=== PATIENT | female | born 1990 ===

== ENCOUNTER 2019-03-08 14:04 | Emergency (ER) | payer BC ==
[~2019-03-08 14:04] MED LIST: Metoprolol Tartrate 5 MG/5 ML SDV IV SCH; Sodium Chloride 0.9% 10 ML Syringe FLUSH PRN
[2019-03-08] MEDS ORDERED: Amiodarone 150 MG/3 ML SDV IV ONE (14:05)
[2019-03-08] MEDS ORDERED: Succinylcholine 200 MG/10 ML MDV IV ONE (14:05)
[2019-03-08] MEDS ORDERED: Etomidate 2 MG/ML 20 ML SDV IVPUSH ONE (14:05)
[2019-03-08] MEDS ORDERED: Atropine 0.1 MG/ML 10 ML Syringe IV ONE (14:05)
[2019-03-08] MEDS ORDERED: Rocuronium 100 MG/10 ML MDV IV ONE (14:05)
[2019-03-08] MEDS ORDERED: Sodium Bicarbonate 8.4% 50 MEQ/50 ML Syringe IV ONE (14:05)
[2019-03-08] MEDS ORDERED: EPINEPHrine 1:10,000 1 MG/10 ML Syringe IV ONE (14:05)
[2019-03-08] MEDS ORDERED: DOPamine/Dextrose 5%-Water 400 MG/250 ML BAG IV ONE (14:05)
[2019-03-08 14:13] LABS: BASE EXCESS VENOUS -2.9 mmol/l ((-2)-(+3)); BICARBONATE,VENOUS 20 mmol/l (19-25); O2 DELIVERY DEVICE NASAL CANNULA; O2 SATURATION VENOUS 83.6 % (60-80); PCO2 VENOUS 30 mmHg (41-51); PH,VENOUS 7.44 (7.31-7.41); PO2 VENOUS 51 mmHg (35-42)
[2019-03-08] MEDS ORDERED: Lidocaine 1% 30 ML SDV ONE (14:43)
[2019-03-08] MEDS ORDERED: DOPamine/Dextrose 5%-Water 0 MG/0 ML BAG ONE (14:47)
[2019-03-08 15:34] LABS: SODIUM,NA 140 mmol/L (135-145)
--- NOTE | 2019-03-08 15:59 | EDM.PDOC ---
ED HPI GENERAL MEDICAL PROBLEM - General Chief Complaint: Respiratory Problem Stated Complaint: AMBULANCE Time Seen by Provider: 03/08/19 14:05 Source of Information: Reports: Patient - History of Present Illness INITIAL COMMENTS - FREE TEXT/NARRATIVE: Heather 28-year-old woman who presents via ambulance with chest pain and shortness of breath for the past few hours. As she arrives, she is quite out of breath doubly diaphoretic. She tells me that she was seen in [place] for pain in her left leg. Evidently a Doppler ultrasound was done which did not show any sign of DVT. 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 She is not currently on any anticoagulation. During my history taking with Heather, nursing was able to place a 20-gauge IV, and was attempting to place another IV that would be suitable for her CT scan, when she suddenly complained of increased shortness of breath. She became very red in her face, and had 2 episodes of choking-like activity. She then went unresponsive, and was found to have no pulse. CPR was immediately started, and BERNIE HAN was called. After approximately 2 minutes of CPR, she revived, and had spontaneous return to circulation. She was able to wake back up and talk with us after this occurred. She was moved into the trauma bay, and shortly after her arrival there, O2 saturations began to drop into the upper 70s. Fluid bolus was begun. Because of her cardiac arrest, and the fact that she had imminent respiratory failure and possibly another cardiac arrest, decision was made to intubate her. Anesthesia was called and was in attendance in the trauma bay. She was given medicines for intubation, and patient was intubated successfully. Shortly after intubation occurred, her heart rate dropped into the 50s, and O2 sats dropped severely. She was given a dose of epinephrine as well as atropine. Heart rate did respond nicely to this, initially rebounding up into the 140s. However 2 to 3 minutes after this occurred, she again had no pulse, so CPR was resumed. CPR was continued for next of the resuscitation, please see nursing notes for details on time. During each rhythm check, she had pulseless electrical activity. Doses of epinephrine as well as pain were given, as well as a dose of amiodarone and a dose of bicarbonate. I was able to talk with her father by telephone, and told him of the findings. It was relayed to him that there was obvious clinical signs of brain , and we decided together to have resuscitation stopped. - Related Data Allergies Allergy/AdvReac Type Severity Reaction Status Date / Time No Known Allergies Allergy Verified 03/08/19 13:57 ED ROS GENERAL - Review of Systems Review Of Systems: Comprehensive ROS is negative, except as noted in HPI. ED EXAM, GENERAL - Physical Exam Exam: See Below Free Text/Narrative:: Initial exam (prior to code): Heather is a 28-year-old woman who is in mild respiratory distress. Pharynx is clear, mucous membranes are moist Heart: Tachycardia with a rate of 140-150 Lungs: Poor air movement into both bases I do not palpate any erythema or swelling to either lower extremity Course - Vital Signs Last Recorded V/S: Last Vital Signs Temp 36.3 C 03/08/19 13:50 Pulse 145 H 03/08/19 14:14 Resp 32 H 03/08/19 13:50 BP 98/58 L 03/08/19 14:14 Pulse Ox 78 L 03/08/19 13:50 - Orders/Labs/Meds Orders: Active Orders 24 hr Category Date Time Status Cardiac Monitoring [RC] . DIRECTED Care 03/08/19 13:54 Active EKG 12 Lead [EKG Documentation Completion] [RC] STAT Care 03/08/19 14:17 Active Oxygen Therapy [RC] PRN Care 03/08/19 13:54 Active Peripheral IV Care [RC] . DIRECTED Care 03/08/19 13:55 Active Pulse Oximetry [RC] CONTINUOUS Care 03/08/19 13:54 Active Peripheral IV Insertion Adult [OM.PC] Stat Oth 03/08/19 13:54 Ordered Labs: Laboratory Tests 03/08/19 03/08/19 03/08/19 Range/Units 14:10 14:10 14:10 WBC 28.9 H* (5.0-10.0) 10^3/uL RBC 5.35 (4.2-5.4) 10^6/uL Hgb 14.2 (12.0-16.0) g/dL Hct 44.4 (37.0-47.0) % MCV 83.0 (80-100) fL MCH 26.5 L (27.0-34.0) pg MCHC 32.0 L (33.0-35.0) g/dL Plt Count 339 (150-450) 10^3/uL Neut % (Auto) 80.2 H (42.2-75.2) % Lymph % (Auto) 15.9 L (20.5-50.1) % [place] % (Auto) 2.9 (2-8) % Eos % (Auto) 0.8 L (1.0-3.0) % Baso % (Auto) 0.2 (0.0-1.0) % Add Manual Diff Yes Neutrophils % (Manual) 80 H (42-75) % Band Neutrophils % 2 % Lymphocytes % (Manual) 13 L (20-50) % Monocytes % (Manual) 2 (2-8) % Eosinophils % (Manual) 1 (1-3) % Myelocytes % 2 VBG pH 7.44 H (7.31-7.41) VBG pCO2 30 L (41-51) mmHg VBG pO2 51 H (35-42) mmHg VBG HCO3 20 (19-25) mmol/l VBG O2 Saturation 83.6 H (60-80) % VBG Base Excess -2.9 L ((-2)-(+3)) mmol/l O2 Delivery Device Nasal cannula Sodium 140 (135-145) mmol/L POC Glucose (70-105) mg/dl 03/08/19 Range/Units 14:55 WBC (5.0-10.0) 10^3/uL RBC (4.2-5.4) 10^6/uL Hgb (12.0-16.0) g/dL Hct (37.0-47.0) % MCV (80-100) fL MCH (27.0-34.0) pg MCHC (33.0-35.0) g/dL Plt Count (150-450) 10^3/uL Neut % (Auto) (42.2-75.2) % Lymph % (Auto) (20.5-50.1) % [place] % (Auto) (2-8) % Eos % (Auto) (1.0-3.0) % Baso % (Auto) (0.0-1.0) % Add Manual Diff Neutrophils % (Manual) (42-75) % Band Neutrophils % % Lymphocytes % (Manual) (20-50) % Monocytes % (Manual) (2-8) % Eosinophils % (Manual) (1-3) % Myelocytes % VBG pH (7.31-7.41) VBG pCO2 (41-51) mmHg VBG pO2 (35-42) mmHg VBG HCO3 (19-25) mmol/l VBG O2 Saturation (60-80) % VBG Base Excess ((-2)-(+3)) mmol/l O2 Delivery Device Sodium (135-145) mmol/L POC Glucose 173 H (70-105) mg/dl Meds: Medications Discontinued Medications Generic Name Dose Route Start Last Admin Trade Name Freq PRN Reason Stop Dose Admin Dopamine HCl/Dextrose Confirm 03/08/19 14:47 Dopamine In D5w 400 Mg/250 Ml Administered 03/08/19 14:48 Dose 400 mg in 250 mls @ as directed .ROUTE .STK-MED ONE Lidocaine HCl Confirm 03/08/19 14:43 Xylocaine-Mpf 1% Administered 03/08/19 14:44 Dose 30 ml .ROUTE .STK-MED ONE Metoprolol Tartrate 5 mg 03/08/19 14:00 03/08/19 14:14 Lopressor IV 03/09/19 13:55 5 mg Q5M RAMONA Administration Morphine Sulfate 4 mg 03/08/19 13:54 Morphine IVPUSH 03/09/19 13:55 Q10M PRN Chest Pain Sodium Chloride 10 ml 03/08/19 13:54 Saline Flush FLUSH ASDIRECTED PRN Keep Vein Open Departure - Departure Time of Disposition: 15:22 Disposition: 20 Preliminary Cause of *Q: Cardiac Arrest Clinical Impression: Cardiac arrest - Discharge Information *PRESCRIPTION DRUG MONITORING PROGRAM REVIEWED*: Not Applicable *COPY OF PRESCRIPTION DRUG MONITORING REPORT IN PATIENT KAT: Not Applicable Referrals: PCP,Unknown [Primary Care Provider] - Sepsis Event Note - Focused Exam Date Exam was Performed: 03/09/19 Time Exam was Performed: 09:35 - Problem List & Annotations (1) Cardiac arrest SNOMED Code(s): 207170157 Code(s): I46.9 - CARDIAC ARREST, CAUSE UNSPECIFIED Status: Acute Annotation/Comment:: Cardiac arrest, with clinical evidence supporting severe pulmonary embolism - My Orders Last 24 Hours: My Active Orders 03/08/19 13:54 Cardiac Monitoring [RC] . DIRECTED Oxygen Therapy [RC] PRN Pulse Oximetry [RC] CONTINUOUS Peripheral IV Insertion Adult [OM.PC] Stat 03/08/19 13:55 Peripheral IV Care [RC] . DIRECTED 03/08/19 14:17 EKG 12 Lead [EKG Documentation Completion] [RC] STAT - Assessment/Plan Last 24 Hours: My Active Orders 03/08/19 13:54 Cardiac Monitoring [RC] . DIRECTED Oxygen Therapy [RC] PRN Pulse Oximetry [RC] CONTINUOUS Peripheral IV Insertion Adult [OM.PC] Stat 03/08/19 13:55 Peripheral IV Care [RC] . DIRECTED 03/08/19 14:17 EKG 12 Lead [EKG Documentation Completion] [RC] STAT Plan: Patient's body authorized for pickup by the home by patient's father
== END 2019-03-08 18:55 | disposition expired ==
LOC: DL.ED 14:04
DX: I46.9 Cardiac arrest, cause unspecified (principal)
CPT/HCPCS: 31500; 36415; 80053; 82803; 82962; 83735; 84484; 85025; 92950; 93005; 96374; 99285; J0171; J0282; J0330; J0461; J1265; J3490